=== PATIENT | female | born 1990 | race Caucasian/White ===

== ENCOUNTER 2023-12-21 10:56 | Emergency (ER) | payer OTHER, SELFPAY ==
[2023-12-21 11:05] VITALS: BP 122/81; PULSE 87; RESP 16; TEMP 36.1; O2SAT 98; BMI 24.8
--- NOTE | 2023-12-21 11:27 | CRLHL7_ITS ---
For Patients: As a result of the Century Cures Act, medical imaging exams and procedure reports are released immediately into your electronic medical record. You may view this report before your referring provider. If you have questions, please contact your health care provider. INDICATION: Evaluate for foreign body, glass TECHNIQUE: X-ray right foot, three views COMPARISON: None. FINDINGS/IMPRESSION: Small radiopaque density measuring 3 mm at the plantar aspect of the heel. On the oblique view this appears to extend to the skin. Given history this likely represents a tiny shard of glass. Dictated by Dhara Goldman MD @ 12/21/2023 12:40:21 PM Dictated by: Dhara Goldman MD @ 12/21/2023 12:44:09 (Electronically Signed)
--- NOTE | 2023-12-21 11:28 | ED_ITS ---
HPI - Extremity Injury (Lower) General Chief Complaint: Extremity Pain/Injury, Lower Stated Complaint: poss infection right foot Time Seen by Provider: 12/21/23 11:22 History of Present Illness HPI Narrative: This 33-year-old female comes in with pain in the plantar surface of her right foot. She states that she stepped on some broken glass accidentally about 2 days ago. She has a small cut on the bottom of her foot and wonders if there is a foreign object in there, namely glass. She states that she was able to walk on this foot over the past couple days until today when it became more red and painful. She does have a small red streak emanating up the lateral aspect of her foot toward her ankle. Related Data Home Medications ?Medication ?Instructions ?Recorded ?Confirmed multivitamin 1 tab PO QAM 07/11/23 12/21/23 Previous Rx's ?Medication ?Instructions ?Recorded valacyclovir 500 mg tablet 500 mg PO QDAY #90 tabs 07/11/23 venlafaxine 150 mg 150 mg PO QHS #90 caps 07/11/23 capsule,extended release 24 hr cephalexin 500 mg capsule 500 mg PO TID 5 days #15 caps 12/21/23 Allergies Allergy/AdvReac Type Severity Reaction Status Date / Time No Known Drug Allergies Allergy Verified 07/11/23 16:57 Review of Systems Status of ROS: Reports: 10 or more systems reviewed and unremarkable except as noted in History and below Narrative: Constitutional: No fevers, no weight gain or loss. Eyes: No discharge. No vision changes. HENT: No congestion, no sore throat, no ear pain. Cardiovascular: No chest pain, no palpitations. Respiratory: No shortness of breath, no wheezes, no cough. Gastrointestinal: No abdominal pain, no vomiting, no diarrhea. Genitourinary: No dysuria, no hematuria. Musculoskeletal: Normal range of motion. Skin: No rashes, no pruritis. Right foot injury as described above. Neurological: No dizziness, weakness, sensory change, speech change. Endo/Heme/Allergies: No bruising or bleeding. No polydipsia. Pysch: no suicidality, no anxiety, no insomnia. All other systems reviewed and are negative. [facility] Surgical History (Updated 07/11/23 @ 18:15 by Veronica Davila CNP) History of ?Z98.891 - History of uterine scar from previous surgery (ICD-10) H/O spinal fusion ?Z98.1 - Arthrodesis status (ICD-10) Social History Little interest or pleasure in doing things: not at all Feeling down, depressed, or hopeless: not at all Exam Narrative: Exam Narrative: Constitutional: Well-developed, well-nourished, no acute distress. HEENT: Normocephalic, atraumatic. Neck: Normal range of motion. Nontender. Supple. Heart: Regular. No murmurs. Normal rate. Intact distal pulses. Lungs: Clear to auscultation. No chest discomfort. No wheezes, rhonchi, or rales. Abdomen: Normal bowel sounds. Nontender. No rebound tenderness. Genitalia: Deferred. Back: No midline tenderness. Normal range of motion. Extremities: Normal range of motion. Small puncture wound on the lateral aspect of the plantar surface of the right foot. There is surrounding erythema with a red streak on the skin extending up to the right lateral malleolus. Skin: No rash. Warm. No erythema or pallor. Neurologic: No altered sensation. No weakness. Alert and oriented. Psychiatric: No suicidality. No anxiety or depression. No insomnia. Nursing notes and vitals signs are reviewed. Const: Vital Signs, click to edit/add: Vital Signs - 24 hr 12/21/23 11:05 Temperature 97 F L Pulse Rate [Pulse Oximeter] 87 Respiratory Rate 16 Blood Pressure [Ri ght Upper Arm] 122/81 Pulse Oximetry 98 Oxygen Delivery Me thod Room Air Course Vital Signs Vital signs: Initial Vital Signs Temperature 97 F L 12/21/23 11:05 Temperature Source Temporal Artery Scan 12/21/23 11:05 Pulse Rate 87 12/21/23 11:05 Respiratory Rate 16 12/21/23 11:05 Blood Pressure 122/81 12/21/23 11:05 Blood Pressure Mean 94 12/21/23 11:05 Blood Pressure Position Sitting 12/21/23 11:05 Pulse Oximetry 98 12/21/23 11:05 Oxygen Delivery Method Room Air 12/21/23 11:05 Vital Signs Temperature 97 F L 12/21/23 11:05 Pulse Rate 87 12/21/23 11:05 Respiratory Rate 16 12/21/23 11:05 Blood Pressure 122/81 12/21/23 11:05 Pulse Oximetry 98 12/21/23 11:05 Oxygen Delivery Method Room Air 12/21/23 11:05 Temperature 97 F L 12/21/23 11:05 Pulse Rate 87 12/21/23 11:05 Respiratory Rate 16 12/21/23 11:05 Blood Pressure 122/81 12/21/23 11:05 Pulse Oximetry 98 12/21/23 11:05 Oxygen Delivery Method Room Air 12/21/23 11:05 MDM - Extremity Injury (Lower) MDM Narrative Medical decision making narrative: This patient comes in with an injury to her right foot that now has some increased redness and a small streak extending up toward her right lateral malleolus. X-ray images are obtained and do show evidence of foreign object. I was able to access this by a 1st anesthetizing with lidocaine 1% with epinephrine. I did open the wound a little further with a 11. Blade and then used a pickups to grab the small piece of glass. A Band-Aid was applied and the patient was given instructions regarding wound healing. She did receive a prescription for Keflex. Discharge Plan Discharge Clinical Impression: Foreign body (FB) in soft tissue, Cellulitis Patient Disposition: Home, Self-Care Condition: Improved Additional Instructions: Take medicine as prescribed. Increase activity as tolerated. Follow up with MD return if worsening. Prescriptions: New cephalexin 500 mg capsule 500 mg PO TID 5 Days Qty: 15 0RF No Action multivitamin Tablet 1 tab PO QAM valacyclovir 500 mg tablet 500 mg PO QDAY Qty: 90 3RF venlafaxine 150 mg capsule,extended release 24hr 150 mg PO QHS Qty: 90 3RF Follow Up/Referrals: Provider,Not a Local [Primary Care Provider] - Stand Alone [facility] Inst[facility]
== END 2023-12-21 12:40 | disposition home or self-care (01) ==
PROVIDERS: Emergency Provider Emergency Medicine Emergency Medical Services
DX: S91.341A Puncture wound with foreign body, right foot, initial encounter (principal); W25.XXXA Contact with sharp glass, initial encounter; W45.8XXA Other foreign body or object entering through skin, initial encounter
CPT/HCPCS: 10120; 73630; 99284